=== PATIENT | male | born 1970 | race Two or more races ===

== ENCOUNTER 2021-06-23 09:06 | Emergency (ER) | payer MEDICAID ==
[~2021-06-23] VITALS: Ht 165.1 cm; Wt 61.2 kg
--- NOTE | 2021-06-23 09:27 | NUR ---
BIB SELF C/O LIP ABSCESS X 5 DAYS. VITALS ARE WITHIN NORMAL LIMITS, NO RESP DISTRESS NOTED.
[2021-06-23] MEDS ORDERED: LIDOCAINE 1% INJ 50 ML MDV IJ ONE (10:00)
[2021-06-23] MEDS ORDERED: SULF1TAB48 PO (10:39)
[2021-06-23] MEDS ORDERED: IBUP-1955 PO (10:39)
[2021-06-23] MEDS ORDERED: CEPH500C2 PO (10:39)
[2021-06-23] MEDS ORDERED: BACI/NEOM/POLY B OINT PKT 1 UDPKT PACKET TP ONE (11:00)
[2021-06-23 11:05] VITALS: BP 118/76
--- NOTE | 2021-06-23 11:05 | NUR ---
Patient discharged to home in stable condition. Written and verbal after care instructions given. Patient verbalizes understanding of instruction.
== END 2021-06-23 11:05 | disposition home or self-care (01) ==
LOC: ER 09:06
DX: K12.2 Cellulitis and abscess of mouth (principal); Z88.0 Allergy status to penicillin; Z60.2 Problems related to living alone